=== PATIENT | female | born 1945 | race Caucasian/White ===

== ENCOUNTER 2016-08-27 16:51 | Emergency (ER) | payer OTHER, MEDICARE ==
[~2016-08-27] VITALS: Ht 165.1 cm; Wt 88.5 kg
[~2016-08-27 16:51] MED LIST: LISI-338 PO; METO-269 PO; PANT40TA3 PO; TEMA15CA PO; TRAM-29 PO; TRIA1CAP3 PO
[2016-08-27 17:10] VITALS: BP 199/98
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
--- NOTE | 2016-08-28 07:58 | RAD ---
Indication injury, pain. AP oblique and lateral views of the right hand were obtained. There is some soft tissue swelling involving the dorsum of the hand. There are degenerative changes. There is widening between the lunate and navicular compatible with ligamentous injury. An acute bony finding is not seen. IMPRESSION: Chronic changes. No acute findings
== END 2016-08-27 18:19 | disposition home or self-care (01) ==
LOC: ER 16:51
DX: S60.221A Contusion of right hand, initial encounter (principal); S50.12XA Contusion of left forearm, initial encounter; M54.2 Cervicalgia; I10 Essential (primary) hypertension; Z86.73 Personal history of transient ischemic attack (TIA), and cerebral infarction without residual deficits; Z88.0 Allergy status to penicillin; V98.8XXA Other specified transport accidents, initial encounter; Y93.89 Activity, other specified; Y92.89 Other specified places as the place of occurrence of the external cause; Y99.8 Other external cause status
CPT/HCPCS: 73130; 99284

== ENCOUNTER 2019-05-31 10:51 | Emergency (ER) | payer MEDICARE ==
[~2019-05-31] VITALS: Ht 165.1 cm; Wt 86.2 kg
[~2019-05-31 10:51] MED LIST changes: -PANT40TA3 PO; +PANT40TA77 PO; -TRAM-29 PO; +TRAM-48 PO
[2019-05-31 11:07] VITALS: BP 134/63
[2019-05-31 11:29] LABS: BASO # 0.1 x10^3/uL (0.0-0.2); BASO % 1 % (0-3); EOS # 0.1 x10^3/uL (0.0-0.7); EOS % 1 % (0-3); HEMATOCRIT 36.8 % (36.0-47.0); HEMOGLOBIN 11.9 g/dL (12.0-15.5); LYMPH # 1.3 x10^3/uL (1.0-4.8); LYMPH % 21 % (24-48); MEAN CORPUSCULAR HEMOGLOBIN 26 pg (25-35); MEAN CORPUSCULAR HGB CONC 32 g/dL (31-37); MEAN CORPUSCULAR VOLUME 79 fL (79-100); MONO # 0.9 x10^3/uL (0.0-1.1); MONO % 14 % (0-9); NEUT # 3.8 x10^3/uL (1.8-7.7); NEUT % 63 % (31-73); PLATELET COUNT 298 x10^3/uL (140-400); RED BLOOD COUNT 4.64 x10^6/uL (3.50-5.40); WHITE BLOOD COUNT 6.1 x10^3/uL (4.0-11.0)
[2019-05-31] MEDS: ONDANSETRON PF 4 MG/2 ML VIAL. IV ONE (11:30)
[2019-05-31] MEDS: fentaNYL PF VIAL 100 MCG/2 ML VIAL IV ONE (11:32)
[2019-05-31] MEDS: IPRATRPIUM/ALBUTEROL 0.5/2.5MG 3 ML NEBU. NEB ONE (11:32)
[2019-05-31] MEDS: BENZONATATE 100 MG CAPSULE. PO ONE (11:33)
[2019-05-31] MEDS: IV NORMAL SALINE 1000ML BAG 1,000 ML IV SCH (11:35)
[2019-05-31 11:44] LABS: CALCIUM 8.9 mg/dL (8.5-10.1); CREATININE 1.6 mg/dL (0.6-1.0); GFR 31.6; POTASSIUM 3.3 mmol/L (3.5-5.1)
[2019-05-31 11:49] LABS: ALBUMIN 3.5 g/dL (3.4-5.0); ALBUMIN/GLOBULIN RATIO 0.9 (1.0-1.7); TOTAL BILIRUBIN 0.3 mg/dL (0.2-1.0); TOTAL PROTEIN 7.5 g/dL (6.4-8.2)
--- NOTE | 2019-05-31 11:49 | RAD ---
EXAM: Chest, single view. HISTORY: Cough. COMPARISON: None. FINDINGS: A frontal view of the chest is obtained. There is no infiltrate, pleural effusion or pneumothorax. The heart is normal in size. IMPRESSION: No acute pulmonary finding. Electronically signed by: Aleksandra Forrest MD (05/31/2019 11:46 AM) [facility]
[2019-05-31 11:55] LABS: INFLUENZA A PATIENT POSITIVE (NEGATIVE); INFLUENZA B PATIENT NEGATIVE (NEGATIVE)
[2019-05-31] MEDS ORDERED: BENZ100C PO (12:46)
[2019-05-31] MEDS ORDERED: ALBU2.5V8 IH (12:46)
[2019-05-31] MEDS ORDERED: ONDA4TAB7 PO (12:46)
[2019-05-31] MEDS ORDERED: HYDR-3164 PO (12:46)
--- NOTE | 2019-05-31 12:47 | PHYS DOC ---
Past Medical History Past Medical History: High Cholesterol, Hypertension, Other Additional Past Medical Histor: DEHYDRATION, NEUROPHATY Past Surgical History: Hysterectomy, Other Additional Past Surgical Histo: SINUS Alcohol Use: None Drug Use: None Adult General Chief Complaint Chief Complaint: DIARRHEA HPI HPI Patient is a 74 year old female patient with history of dyslipidemia and hypertension who presents with complaining of nausea and diarrhea. Patient complaining of nonproductive cough for the last 5 days associated with chest soreness and myalgia and nausea and chills. Patient states she had 5 episodes of diarrhea today with nausea. She denies sick contact, urinary symptom, vomiting. Review of Systems Review of Systems Constitutional: Denies fever, reports chills [] Eyes: Denies change in visual acuity, redness, or eye pain [] HENT: Reports nasal congestion and sore throat Respiratory: Reports cough and shortness of breath Cardiovascular: No additional information not addressed in HPI [] GI: Denies abdominal pain, nausea, vomiting, bloody stools or diarrhea [] : Denies dysuria or hematuria [] Musculoskeletal: Denies back pain or joint pain [] Integument: Denies rash or skin lesions [] Neurologic: Denies headache, focal weakness or sensory changes [] Endocrine: Denies polyuria or polydipsia [] All other systems were reviewed and found to be within normal limits, except as documented in this note. Current Medications Current Medications Current Medications Medications (Trade) Dose Ordered Sig/Rosalba Start Time Stop Time Status Last Admin Dose Admin Albuterol/ Ipratropium (Duoneb) 3 ml 1X ONCE 05/31/19 11:15 05/31/19 11:22 DC 05/31/19 11:32 3 ML Benzonatate (Tessalon Perle) 100 mg 1X ONCE 05/31/19 11:15 05/31/19 11:22 DC 05/31/19 11:33 100 MG Fentanyl Citrate (Fentanyl 2ml Vial) 50 mcg 1X ONCE 05/31/19 11:15 05/31/19 11:22 DC 05/31/19 11:32 50 MCG Ondansetron HCl (Zofran) 4 mg 1X ONCE 05/31/19 11:15 05/31/19 11:22 DC 05/31/19 11:30 4 MG Sodium Chloride 1,000 ml @ 1,000 mls/hr Q1H 05/31/19 11:13 05/31/19 12:12 05/31/19 11:35 1,000 MLS/HR Allergies Allergies Allergies Coded Allergies Type Severity Reaction Last Updated Verified Penicillins Allergy Intermediate 01/13/15 No Physical Exam Physical Exam Constitutional: Well developed, well nourished, mild distress, non-toxic appearance. [] HENT: Normocephalic, atraumatic, bilateral external ears normal, oropharynx dry, no oral exudates, nose normal. [] Eyes: PERRLA, EOMI, conjunctiva normal, no discharge. [] Neck: Normal range of motion, no tenderness, supple, no stridor. [] Cardiovascular:Heart rate regular rhythm, no murmur [] Lungs & Thorax: Bilateral breath sounds clear to auscultation [] Abdomen: Bowel sounds normal, soft, no tenderness, no masses, no pulsatile masses. [] Skin: Warm, dry, no erythema, no rash. [] Back: No tenderness, no CVA tenderness. [] Extremities: No tenderness, no cyanosis, no clubbing, ROM intact, no edema. [] Neurologic: Alert and oriented X 3, normal motor function, normal sensory function, no focal deficits noted. [] Psychologic: Affect normal, judgement normal, mood normal. [] Current Patient Data Vital Signs Vital Signs Date Time Temp Pulse Resp B/P (MAP) Pulse Ox O2 Delivery O2 Flow Rate FiO2 05/31/19 11:36 95 Room Air 05/31/19 11:32 20 05/31/19 11:07 99.0 95 134/63 (86) 99.0 Lab Values Laboratory Tests Test 05/31/19 11:20 White Blood Count 6.1 x10^3/uL (4.0-11.0) Red Blood Count 4.64 x10^6/uL (3.50-5.40) Hemoglobin 11.9 g/dL (12.0-15.5) L Hematocrit 36.8 % (36.0-47.0) Mean Corpuscular Volume 79 fL (79-100) Mean Corpuscular Hemoglobin 26 pg (25-35) Mean Corpuscular Hemoglobin Concent 32 g/dL (31-37) Red Cell Distribution Width 15.0 % (11.5-14.5) H Platelet Count 298 x10^3/uL (140-400) Neutrophils (%) (Auto) 63 % (31-73) Lymphocytes (%) (Auto) 21 % (24-48) L Monocytes (%) (Auto) 14 % (0-9) H Eosinophils (%) (Auto) 1 % (0-3) Basophils (%) (Auto) 1 % (0-3) Neutrophils # (Auto) 3.8 x10^3/uL (1.8-7.7) Lymphocytes # (Auto) 1.3 x10^3/uL (1.0-4.8) Monocytes # (Auto) 0.9 x10^3/uL (0.0-1.1) Eosinophils # (Auto) 0.1 x10^3/uL (0.0-0.7) Basophils # (Auto) 0.1 x10^3/uL (0.0-0.2) Sodium Level 137 mmol/L (136-145) Potassium Level 3.3 mmol/L (3.5-5.1) L Chloride Level 101 mmol/L (98-107) Carbon Dioxide Level 23 mmol/L (21-32) Anion Gap 13 (6-14) Blood Urea Nitrogen 30 mg/dL (7-20) H Creatinine 1.6 mg/dL (0.6-1.0) H Estimated GFR (Cockcroft-Gault) 31.6 BUN/Creatinine Ratio 19 (6-20) Glucose Level 121 mg/dL (70-99) H Calcium Level 8.9 mg/dL (8.5-10.1) Total Bilirubin 0.3 mg/dL (0.2-1.0) Aspartate Amino Transferase (AST) 42 U/L (15-37) H Alanine Aminotransferase (ALT) 29 U/L (14-59) Alkaline Phosphatase 91 U/L (46-116) Total Protein 7.5 g/dL (6.4-8.2) Albumin 3.5 g/dL (3.4-5.0) Albumin/Globulin Ratio 0.9 (1.0-1.7) L Lipase 148 U/L (73-393) Influenza Type A Antigen Positive (NEGATIVE) Influenza Type B Antigen Negative (NEGATIVE) Laboratory Tests 05/31/19 11:20 Laboratory Tests 05/31/19 11:20 EKG EKG [] Radiology/Procedures Radiology/Procedures [][facility] [address] [place] [address] IMAGING REPORT Signed PATIENT: DEBORAH AREVALO ACCOUNT: [id number] : 1945 LOCATION: ER AGE: 74 SEX: F EXAM STATUS: REG ER ORD. PHYSICIAN: MIMI PURDY MD REASON: cough PROCEDURE: PORTABLE CHEST 1V EXAM: Chest, single view. HISTORY: Cough. COMPARISON: None. FINDINGS: A frontal view of the chest is obtained. There is no infiltrate, pleural effusion or pneumothorax. The heart is normal in size. IMPRESSION: No acute pulmonary finding. Electronically signed by: Aleksandra Dye MD (05/31/2019 11:46 AM) [facility] DICTATED and SIGNED BY: ALEKSANDRA DYE MD DATE: 05/31/191145 Course & Med Decision Making Course & Med Decision Making Pertinent Labs and Imaging studies reviewed. (See chart for details) Evaluation of patient in ER showed 73-year-old female patient with complaining of nausea and diarrhea and myalgia and cough and congestion and flulike symptom for 5 days. Of 99.0 at arrival to ER and treated with IV fluid, Zofran, fent anyl, DuoNeb. Patient had positive flu a and didn't want to stay at Hospital. Labs show potassium of 2.3 and patient treated with oral potassium. Patient wants to go home and refused hospitalization. Patient was advised plenty of liquids and follow up with her primary care physician.discharge: I've spoken with the patient and/or caregivers. I've explained the patient's condition, diagnosis and treatment plan based on information available to me at this time. I've answered the patient's and/or caregivers questions and addressed any concerns. The patient and/or caregivers have a good understanding the patient's diagnosis, condition and treatment plan as can be expected at this point. Vital signs have been stabilized. The patient's condition is stable for discharge from the emergency department. The patient will pursue further outpatient evaluation with her primary care provider or other designated consulting physician as outlined in the discharge instructions. Patient and/or caregivers are agreeable to this plan of care and follow-up instructions have been explained in detail. The patient and/or caregivers have received these instructions in written format and expressed understanding of these discharge instructions. The patient and her caregivers are aware that if any significant change in condition or worsening of symptoms should prompt him to immediately return to this of the closest emergency department. If an emergent department is not readily available I would encourage him to call 911. Jose Disclaimer Dragon Disclaimer This electronic medical record was generated, in whole or in part, using a voice recognition dictation system. Departure Departure Impression: Primary Impression: Influenza A Additional Impressions: Hypokalemia Renal insufficiency Dehydration Anemia Diarrhea Disposition: HOME, SELF-CARE (at 1242) Condition: IMPROVED Referrals: BRANDO STAPLETON JR, MD (PCP) Patient Instructions: Dehydration, Adult, Diet for Diarrhea, Adult, Hypokalemia, Influenza A (H1N1) Additional Instructions: Drink plenty of liquids Follow-up with your primary care physician in 2-3 days Return to ER if not getting better Thank you for visiting [facility]. We appreciate you trusting us with your care. If any additional problems come up don't hesitate to return to visit us. Please follow up with your primary care provider so they can plan additional care if needed and know about the problem that you had. If symptoms worsen come back to the Emergency Department. Any concerning symptoms that start such as chest pain, shortness of air, weakness or numbness on one side of the body, running high fevers or any other concerning symptoms return to the ER. Scripts Ondansetron Hcl (ZOFRAN) 4 Mg Tablet 1 TAB PO PRN Q6-8HRS for nausea, #12 TAB Prov: MIMI PURDY MD 05/31/19 Benzonatate (TESSALON PERLE) 100 Mg Capsule 1 CAP PO TID for cough, #21 CAP Prov: MIMI PURDY MD 05/31/19 Albuterol Sulfate (PROAIR HFA INHALER) 8.5 Gm Hfa.aer.ad 2 PUFF IH PRN Q4-6HRS PRN for wheezing for 21 Days, #1 INHALER 0 Refills Prov: MIMI PURDY MD 05/31/19 Hydrocodone/Apap 5-325 (NORCO 5-325 TABLET) 1 Each Tablet 1 TAB PO PRN Q6HRS PRN for PAIN, #10 TAB 0 Refills Prov: MIMI PURDY MD 05/31/19 Problem Qualifiers Additional Impressions: Anemia Anemia type: unspecified type Qualified Codes: D64.9 - Anemia, unspecified Diarrhea Diarrhea type: unspecified type Qualified Codes: R19.7 - Diarrhea, unspecified MIMI PURDY MD May 31, 2019 12:47
[2019-05-31] MEDS: DIPHENOXYLATE/ATROPINE TABLET. PO ONE (13:04)
[2019-05-31] MEDS: POTASSIUM CHLORIDE 20 MEQ TABLET.ER. PO ONE (13:04)
[2019-05-31] MEDS ORDERED: METOCLOPRAMIDE HCL 10 MG/2 ML VIAL. IVP ONE (13:45)
--- NOTE | 2019-06-01 07:03 | EKG ---
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
== END 2019-05-31 12:55 | disposition home or self-care (01) ==
LOC: ER 10:51
DX: J10.1 Influenza due to other identified influenza virus with other respiratory manifestations (principal); N28.9 Disorder of kidney and ureter, unspecified; E86.0 Dehydration; E87.6 Hypokalemia; D64.9 Anemia, unspecified; R19.7 Diarrhea, unspecified; E78.00 Pure hypercholesterolemia, unspecified; I10 Essential (primary) hypertension; Z90.710 Acquired absence of both cervix and uterus; Z88.0 Allergy status to penicillin
CPT/HCPCS: 36415; 71045; 80053; 83690; 85025; 87804; 93005; 96361; 96374; 96375; 99285; J2405; J3010; J7030; J7620